=== PATIENT | male | born 1990 | race Two or more races ===

== ENCOUNTER 2016-10-18 19:49 | Emergency (ER) | payer SELFPAY ==
[~2016-10-18] VITALS: Ht 190.5 cm; Wt 81.6 kg
[2016-10-18 21:17] VITALS: BP 159/87
== END 2016-10-18 22:50 | disposition home or self-care (01) ==
LOC: ER 19:56
DX: S93.402A Sprain of unspecified ligament of left ankle, initial encounter (principal); W18.39XA Other fall on same level, initial encounter; Y93.89 Activity, other specified; Y92.89 Other specified places as the place of occurrence of the external cause; Y99.8 Other external cause status
CPT/HCPCS: 73610; 73630